=== PATIENT | female | born 1975 | race Caucasian/White ===

== ENCOUNTER → 2020-09-10 14:31 | Outpatient (BNVA) | payer OTHER, SELFPAY | PROVIDERS: PCP Internal Medicine; Referring Provider Internal Medicine; Visit Provider Advanced Practice Midwife | DX: Z76.89 Persons encountering health services in other specified circumstances (principal) ==

== ENCOUNTER 2020-12-05 14:15 | Outpatient (REF) | payer OTHER, SELFPAY | END 2020-12-05 14:16 | disposition home or self-care (01) | LOC: HO.LAB 14:15 | PROVIDERS: PCP Internal Medicine; Visit Provider Internal Medicine | DX: Z20.822 Contact with and (suspected) exposure to COVID-19 (principal) | CPT/HCPCS: 36415; C9803; U0003 ==

== ENCOUNTER → 2021-01-01 14:45 | Outpatient (BNVA) | payer OTHER, SELFPAY | PROVIDERS: PCP Internal Medicine; Visit Provider Advanced Practice Midwife | DX: Z30.42 Encounter for surveillance of injectable contraceptive (principal) | CPT/HCPCS: 81025; 96372; 99212 ==

== ENCOUNTER → 2021-03-27 14:47 | Outpatient (BNVA) | payer OTHER, SELFPAY | PROVIDERS: PCP Internal Medicine; Visit Provider Advanced Practice Midwife | DX: Z30.42 Encounter for surveillance of injectable contraceptive (principal) | CPT/HCPCS: 96372; 99211; J1050 ==

== ENCOUNTER → 2021-06-19 14:52 | Outpatient (BNVA) | payer OTHER, SELFPAY | PROVIDERS: PCP Internal Medicine; Visit Provider Advanced Practice Midwife | DX: Z30.42 Encounter for surveillance of injectable contraceptive (principal) | CPT/HCPCS: 96372; 99211 ==

== ENCOUNTER 2021-09-14 14:27 | Outpatient (REF) | payer OTHER, SELFPAY ==
[2021-09-17 02:32] LABS: HPV mRNA E6/E7 rflx Not Detected (Not Detected)
== END 2021-09-14 14:28 | disposition home or self-care (01) ==
LOC: HO.LAB 14:27
PROVIDERS: PCP Internal Medicine; Visit Provider Advanced Practice Midwife
DX: Z30.42 Encounter for surveillance of injectable contraceptive (principal); Z72.0 Tobacco use
CPT/HCPCS: 87624; 88142; 96372

== ENCOUNTER 2021-10-26 08:04 | Outpatient (REF) | payer OTHER, SELFPAY ==
--- NOTE | ~2021-10-26 | MM_ITS ---
EXAMINATION: MM SCREENING DIGITAL BREAST TOMOSYNTHESIS, BILATERAL CLINICAL INFORMATION: Screening. Asymptomatic. The lifetime risk of breast cancer based on the Tyrer-Cuzick Model is 13%. COMPARISON: Mammography: 09/15/2019, 06/16/2017, 03/16/2014 TECHNIQUE: Digital breast tomosynthesis is performed in both the craniocaudal and mediolateral oblique views along with computer-aided detection (CAD). Synthesized 2D images are generated from the tomosynthesis. FINDINGS: The breasts are heterogeneously dense, which may obscure small masses (ACR BI-RADS breast composition Category c). There is no developing density or architectural abnormality or significant mass. The axilla and skin contours are unremarkable. No abnormal calcifications on the right. The left MLO view has some fine punctate round calcifications posterior upper breast 9 cm from nipple. No grouped calcifications appreciated on CC view. These may be summated on the MLO projection. Patient will be recalled for additional imaging. MM/MM tomosynthesis screening BI IMPRESSION: 1. Left: Calcifications posterior upper breast on MLO view, possibly dispersed on CC projection. 2. Right: No mammographic evidence of malignancy. ASSESSMENT: BI-RADS 0: Incomplete - Need Additional Imaging Evaluation RECOMMENDATION: 1. Additional views of the left breast (magnification ML, magnification CC inner and outer). 2. Radiology department staff will contact the patient for additional imaging. This patient's information was entered into a reminder system with a target due date for their next mammogram.
== END 2021-10-26 08:05 | disposition home or self-care (01) ==
LOC: HO.MAMMO 08:04
PROVIDERS: PCP Internal Medicine; Visit Provider Advanced Practice Midwife
DX: Z12.31 Encounter for screening mammogram for malignant neoplasm of breast (principal)
CPT/HCPCS: 77063; 77067

== ENCOUNTER 2021-10-29 14:25 | Outpatient (REF) | payer OTHER, SELFPAY ==
--- NOTE | ~2021-10-29 | MM_ITS ---
EXAMINATION: MM DIAGNOSTIC DIGITAL MAMMOGRAPHY, LEFT CLINICAL INFORMATION: Recall from screening for fine punctate round calcifications upper left breast on MLO view. TC score 13%. COMPARISON: Mammography: 10/26/2021, 09/15/2019 TECHNIQUE: Digital mammography is performed in the following views: Magnification ML, magnification CC x3 (outer, central, inner). FINDINGS: The breasts are heterogeneously dense, which may obscure small masses (ACR BI-RADS breast composition Category c). The additional magnification views demonstrate punctate uniform round calcifications regionally distributed in the upper inner quadrant over an area of approximately 4 cm. There are no pleomorphic calcifications or ductal distribution. 2 calcifications show layering on the ML view. Results are discussed with the patient at time of visit. Calcifications have probable benign appearance and will be reassessed again in 6 months. MM/MM added views LT IMPRESSION: Punctate round calcifications upper inner quadrant. No pleomorphic types or ductal distribution. ASSESSMENT: BI-RADS 3: Probably Benign RECOMMENDATION: Diagnostic left mammography in 6 months. This patient's information was entered into a reminder system with a target due date for their next mammogram.
== END 2021-10-29 14:26 | disposition home or self-care (01) ==
LOC: HO.MAMMO 14:25
PROVIDERS: Visit Provider Advanced Practice Midwife
DX: R92.1 Mammographic calcification found on diagnostic imaging of breast (principal)
CPT/HCPCS: 77065

== ENCOUNTER → 2021-12-07 09:52 | Outpatient (BNVA) | payer OTHER, SELFPAY | PROVIDERS: PCP Internal Medicine; Visit Provider Advanced Practice Midwife | DX: Z30.42 Encounter for surveillance of injectable contraceptive (principal) | CPT/HCPCS: 96372; 99211 ==

== ENCOUNTER → 2022-03-29 09:00 | Outpatient (BNVA) | payer OTHER, SELFPAY | PROVIDERS: PCP Internal Medicine; Visit Provider Advanced Practice Midwife | DX: Z30.42 Encounter for surveillance of injectable contraceptive (principal) | CPT/HCPCS: 96372; 99211 ==

== ENCOUNTER 2022-05-03 09:54 | Outpatient (REF) | payer OTHER, SELFPAY ==
--- NOTE | ~2022-05-03 | MM_ITS ---
EXAMINATION: MM DIAGNOSTIC DIGITAL BREAST TOMOSYNTHESIS, LEFT CLINICAL INFORMATION: Short interval six-month follow-up probable benign calcifications upper inner quadrant. The lifetime risk of breast cancer based on the Tyrer-Cuzick Model is 13%. COMPARISON: Mammography: 10/29/2021, 10/26/2021 (BI-RADS 0), 09/15/2019, 06/16/2017 TECHNIQUE: Digital breast tomosynthesis is performed in both the craniocaudal and mediolateral oblique views along with computer-aided detection (CAD). Synthesized 2D images are generated from the tomosynthesis. Additional magnification CC and magnification ML views are provided. FINDINGS: The breasts are heterogeneously dense, which may obscure small masses (ACR BI-RADS breast composition Category c). Parenchymal pattern is similar to prior studies. No developing density or interval mass or architectural abnormality. The axilla and skin contours are unremarkable. Left breast calcifications for follow-up appear similar to prior diagnostic exam. There is no increasing calcifications or interval pleomorphic types or ductal distribution. Calcifications will be reassessed again at time of annual bilateral mammography, due in 6 months. MM/MM tomosynthesis diagnostic LT IMPRESSION: -Left breast calcifications for follow-up are stable from prior diagnostic exam. ASSESSMENT: BI-RADS 3: Probably Benign RECOMMENDATION: Diagnostic mammography at time of annual bilateral exam, due in 6 months. This patient's information was entered into a reminder system with a target due date for their next mammogram.
== END 2022-05-03 09:55 | disposition home or self-care (01) ==
LOC: HO.MAMMO 09:54
PROVIDERS: Visit Provider Advanced Practice Midwife
DX: R92.1 Mammographic calcification found on diagnostic imaging of breast (principal)
CPT/HCPCS: 77061; 77065

== ENCOUNTER → 2022-06-25 15:09 | Outpatient (BNVA) | payer OTHER, SELFPAY | PROVIDERS: PCP Internal Medicine; Visit Provider Advanced Practice Midwife | DX: Z30.42 Encounter for surveillance of injectable contraceptive (principal) | CPT/HCPCS: 96372; 99211 ==

== ENCOUNTER → 2022-09-20 14:40 | Outpatient (BNVA) | payer OTHER, SELFPAY | PROVIDERS: Visit Provider Advanced Practice Midwife | DX: Z01.419 Encounter for gynecological examination (general) (routine) without abnormal findings (principal); Z30.42 Encounter for surveillance of injectable contraceptive; Z72.0 Tobacco use | CPT/HCPCS: 96372 ==

== ENCOUNTER 2022-11-05 14:22 | Outpatient (REF) | payer OTHER, SELFPAY | END 2022-11-05 14:23 | disposition home or self-care (01) | LOC: HO.MAMMO 14:22 | PROVIDERS: Visit Provider Advanced Practice Midwife | DX: R92.1 Mammographic calcification found on diagnostic imaging of breast (principal) | CPT/HCPCS: 77062; 77066 ==

== ENCOUNTER → 2022-12-15 14:54 | Outpatient (BNVA) | payer OTHER, SELFPAY | PROVIDERS: Visit Provider Advanced Practice Midwife | DX: Z30.42 Encounter for surveillance of injectable contraceptive (principal) | CPT/HCPCS: 96372; 99211 ==

== ENCOUNTER → 2023-03-16 14:49 | Outpatient (BNVA) | payer OTHER, SELFPAY | PROVIDERS: Visit Provider Advanced Practice Midwife | DX: Z30.42 Encounter for surveillance of injectable contraceptive (principal) | CPT/HCPCS: 96372; 99211 ==

== ENCOUNTER 2023-05-02 14:29 | Outpatient (REF) | payer OTHER, SELFPAY ==
--- NOTE | ~2023-05-02 | MM_ITS ---
EXAMINATION: MM DIAGNOSTIC DIGITAL BREAST TOMOSYNTHESIS, RIGHT CLINICAL INFORMATION: Short interval six-month follow-up probable benign calcifications lower outer right breast similar to calcifications contralateral left breast also under surveillance. TC score 13%. COMPARISON: Mammography: 11/05/2022 (diagnostic, BI-RADS 3 for right); 05/03/2022, 10/29/2021, 10/26/2021 (BI-RADS 0 for left). TECHNIQUE: Digital breast tomosynthesis is performed in both the craniocaudal and mediolateral oblique views along with computer-aided detection (CAD). Synthesized 2D images are generated from the tomosynthesis. Additional magnification right CC and magnification right ML views are obtained. FINDINGS: The breasts are heterogeneously dense, which may obscure small masses (ACR BI-RADS breast composition Category c). Parenchymal pattern is similar to prior studies and there is no developing density or interval mass or architectural abnormality. Right breast calcifications for follow-up central 8:00 position are similar to prior diagnostic exam. The calcifications will be reassessed at time of bilateral annual diagnostic mammography, due in 6 months. Results are provided to the patient at time of visit by the technologist. MM/MM tomosynthesis diagnostic RT IMPRESSION: -No significant change in right breast calcifications from prior diagnostic exam. ASSESSMENT: BI-RADS 3: Probably Benign RECOMMENDATION: Diagnostic mammography with bilateral magnification views at time of annual exam, due in 6 months. This patient's information was entered into a reminder system with a target due date for their next mammogram.
== END 2023-05-02 14:30 | disposition home or self-care (01) ==
LOC: HO.MAMMO 14:29
PROVIDERS: Visit Provider Advanced Practice Midwife
DX: R92.1 Mammographic calcification found on diagnostic imaging of breast (principal)
CPT/HCPCS: 77061; 77065

== ENCOUNTER 2023-06-03 14:58 | Outpatient (AMB) | payer OTHER, SELFPAY ==
[2023-06-03 15:15] VITALS: BMI 30.5
--- NOTE | 2023-06-03 15:15 | AM.OFFVISNUR ---
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 No c/o. Pt tolerated injection well. She will return in 12 weeks for her next injection. Pt verbalizes understanding and agrees with plan. No further questions. Office Procedures Depo Questionnaire If YES to any of the following questions, please consult a provider. Date of last injection: 03/16/23 Date of last gynecology exam: 09/20/22 Menstrual pattern since last injection has been: Not Applicable Irregular bleeding?: No Breast lumps or other breast changes?: No Changes in weight or appetite?: No Depression or changes in mood?: No Abnormal hair growth or loss?: No Skin problems (rash, acne, discoloration)?: No Pain at the injection site?: No Headaches?: No Nervousness?: No Abdominal pain or cramping?: No Dizziness or nausea?: No Fatigue or weakness?: No Decrease in sexual drive?: No Chest pain or shortness of breath?: No Swelling in arms or legs?: No Form completed by?: Doris Davis RN Office Meds Depo-Provera Performing Provider: Ivon Benedict CNM Administered by: Doris Davis on 06/03/23 15:17 Dose Route Admin Location Lot Number Expiration Date [facility] Coordinator 150 mg IM LGM [id number] 11/13/24 66127-807-35 LAN Coding Level of Care Code Established Pt Est Pt Level 1 (09351) Patient Type Established History Problem Focused Medical Decision Making Straight Forward Diagnoses Time Spent (min) 10 Assessment & Plan Assessment & Plan Orders: Orders AMB Medroxyprogesterone Injection Patient Supplied Today Z30.42 - Encounter for surveillance of injectable contraceptive
== END 2023-06-03 15:11 | disposition home or self-care (01) ==
LOC: HO.HWS 14:58
PROVIDERS: Visit Provider Advanced Practice Midwife
DX: Z30.42 Encounter for surveillance of injectable contraceptive (principal)

== ENCOUNTER → 2023-06-03 14:58 | Outpatient (BNVA) | payer OTHER, SELFPAY | PROVIDERS: Visit Provider Advanced Practice Midwife | DX: Z30.42 Encounter for surveillance of injectable contraceptive (principal) | CPT/HCPCS: 96372; 99211; J1050 ==

== ENCOUNTER 2023-08-29 14:55 | Outpatient (AMB) | payer OTHER, SELFPAY ==
[2023-08-29 15:20] VITALS: BMI 30.7
--- NOTE | 2023-08-29 15:20 | AM.OFFVISNUR ---
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 No c/o. Pt tolerated injection well. She will schedule her next injection in 12 weeks. Pt verbalizes understanding and agrees with plan. No further questions. Office Procedures Depo Questionnaire If YES to any of the following questions, please consult a provider. Date of last injection: 06/03/23 Date of last gynecology exam: 09/20/22 Menstrual pattern since last injection has been: Not Applicable Irregular bleeding?: No Breast lumps or other breast changes?: No Changes in weight or appetite?: No Depression or changes in mood?: No Abnormal hair growth or loss?: No Skin problems (rash, acne, discoloration)?: No Pain at the injection site?: No Headaches?: No Nervousness?: No Abdominal pain or cramping?: No Dizziness or nausea?: No Fatigue or weakness?: No Decrease in sexual drive?: No Chest pain or shortness of breath?: No Swelling in arms or legs?: No Form completed by?: Doris Davis cleaning and maintenance worker Meds Depo-Provera 150 mg/mL intramuscular syringe Performing Provider: Ivon Benedict CNM Performing Location: [facility] [place] [facility] Administered by: Doris Davis on 08/29/23 15:24 Dose Route Admin Location Dispensed Lot Number Expiration Date [facility] Instructional Services Specialist 150 mg IM LGM 1 mL [id number] 03/13/25 14244-972-90 MYLAN Coding Level of Care Code Established Pt Est Pt Level 1 (28897) Patient Type Established History Problem Focused Medical Decision Making Straight Forward Time Spent (min) 12 Assessment & Plan Assessment & Plan Orders: Orders AMB Medroxyprogesterone Injection Patient Supplied Today Z30.42 - Encounter for surveillance of injectable contraceptive
== END 2023-08-29 15:18 | disposition home or self-care (01) ==
PROVIDERS: Visit Provider Advanced Practice Midwife
DX: Z30.42 Encounter for surveillance of injectable contraceptive (principal)

== ENCOUNTER → 2023-08-29 14:55 | Outpatient (BNVA) | payer OTHER, SELFPAY | PROVIDERS: Visit Provider Advanced Practice Midwife | DX: Z30.42 Encounter for surveillance of injectable contraceptive (principal) | CPT/HCPCS: 96372; 99211; J1050 ==

== ENCOUNTER 2023-09-29 09:01 | Outpatient (AMB) | payer OTHER, SELFPAY ==
--- NOTE | 2023-09-29 09:05 | MHC.OFFVIS ---
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 Manager Utilities: Manager Utilities Present (Betty) Allergies No Known Allergies Allergy (Verified 09/29/23 09:06) HPI HPI Comments History of Present Illness Details She is a premenopausal woman presenting for annual examination. Doing well with sports administrator concerns of white bumps located on her labial. Denies pain. Associated with itching. She thinks the itching is because she shaved . She tries to eat healthy and stays active with exercise. Not sexually active. Uses Depo for cycle control. She denies vaginal itching and irritation. Denies family history of breast, ovarian or colon cancer. Last pap smear 09/14/2021, was negative. Last mammogram 05/02/2023, 3.6M Probably Benign Finding - Short 6 M F/U Suggested. She denies any contraindications to control such as: migraines with aura, history of DVT or pulmonary emboli, high blood pressure, liver disease, thrombolic disorders, Lupus, +PEDRO LUIS. Smoker ~1pack every three days, not ready to quit. 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 [employer] Sexual orientation: Straight/Heterosexual Gender identity: Female Female Reproductive History Menstrual Age of Menarche: 12 control method: progesterone injection (Last depo 08/29/23) Total pregnancies: 4 Full term: 1 Number of Living Children: 1 Ab induced: 3 Date of last pap smear: 09/14/21 (neg pap and hpv) History of abnormal pap smear: Yes (5/15 +HPV, 6/16 DELFINA 2 +hpv 8/16 colpo DELFINA 2-3 07/30 Leep DELFINA 3 05/30 neg ) Date of Mammogram: 05/02/23 (Birad 3) Review of Systems Const All systems reviewed & are unremarkable except as noted in HPI and below Reports as per HPI Eyes Reports no additional complaints ENT Reports no additional complaints Card Reports no additional complaints Resp Reports no additional complaints GI Reports as per HPI and Reports no additional complaints Reports as per HPI Musc Reports no additional complaints Skin/Breast Reports as per HPI Neuro Reports no additional complaints Psych Reports no additional complaints Endo Reports no additional complaints Chuck/Lymph Reports no additional complaints Aller/Immun Reports no additional complaints Physical Exam Vital Signs: Last Vital Signs BP 126/84 09/29/23 09:06 BMI result Body Mass Index 31.5 Const General: cooperative, healthy appearing, no acute distress, well developed and alert Orientation/consciousness: patient oriented x3 HEENT Head: Yes normal to inspection Eyes General: appearance normal, both eyes and all related structures Neck Neck: Yes normal visual inspection Thyroid: Thyroid normal Chest Chest palpation & inspection: normal inspection of the chest and other (no puckering, dimpling, peau de orange, retraction, discharge, masses) Breast/axilla inspection: normal inspection of the breasts Breast/axilla palpation: normal palpation of the breasts Resp Effort & Inspection: normal respiratory effort GI Inspection: Yes normal to inspection Palpation (GI): Soft to palpation Rectal Exam - Female: deferred General: Yes bladder normal to palpation External Female Exam: normal appearance of the urethra and other (Scattered sebaceous gland cyst on bilateral labia ) Speculum Exam - Vagina: normal appearance of the vagina, normal palpation and normal vaginal discharge Speculum Exam - Cervix: normal appearance of the cervix and normal palpation Bimanual exam- vagina & uterus: normal bimanual exam, normal palpation, uterine size normal, bladder normal to palpation, normal palpation and non-tender Bimanual Exam- Adnexa, other: no masses Skin General skin exam: no rashes or lesions noted Rashes: no rashes Neuro General: patient oriented x3 Cognition (Neuro): normal cognition Extrem General: Yes normal to inspection Psych Attitude: cooperative Thought process: Normal thought process present Assessment & Plan Assessment & Plan (1) Encounter for gynecological examination: Code(s): Z01.419 - Encounter for gynecological examination (general) (routine) without abnormal findings Plan: Discussed: Current recommendations for pap smears per ASCCP guidelines. Breast awareness and periodic self breast exams. Maintaining a healthy lifestyle including a well balanced diet and routine exercise. Encouraged condom use for STD and prevention. Encouraged patient to sign up for patient portal. All of her questions and concerns were addressed to the best of my ability She will return in one year for AG. (2) Sebaceous cyst of labia: Code(s): N90.7 - Vulvar cyst Plan: Reassured pt. the sebaceous glands are normal findings. She use a warm compress if they become inflamed. If they become infected or painful contact the office for further eval. 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 Consider other options, including non hormonal. Checking FSH once off for a trial, await menses, monitor for hot flashes to ascertin whether the Depo is needed at this age. Encouraged maintaining a healthy diet with Calcium and Vitamin D and routine weight bearing exercises. Pt. does not want a cycle, she prefers to wait another year before considering any changes. She was instructed to go to ER if she develops loss of vision, severe headache that does not resolve, chest pain, difficulty breathing, abdominal pain, or severe pain or tenderness in extremity or new breast lumps. She will call the office with any concerns. (4) Encounter for tobacco use cessation counseling: Code(s): Z71.6 - Tobacco abuse counseling Plan: Encouraged reduction of smoking tips, and to quit. Medications: Refilled medroxyprogesterone (Depo-Provera) 150 mg IM Q12W 1 mL 4RF Coding Level of Care Code Est Pt Prev Care 40-64y(52586) Diagnoses Encounter for gynecological examination Z01. Sebaceous cyst of labia N90.7 Encounter for management and injection of depo-Provera Z30.42 Encounter for tobacco use cessation counseling Z71.6
[2023-09-29 09:06] VITALS: BP 126/84; BMI 31.5
== END 2023-09-29 09:53 | disposition home or self-care (01) ==
LOC: HO.HWS 09:01
PROVIDERS: Visit Provider Advanced Practice Midwife
DX: Z01.419 Encounter for gynecological examination (general) (routine) without abnormal findings (principal); N90.7 Vulvar cyst; Z30.42 Encounter for surveillance of injectable contraceptive; Z71.6 Tobacco abuse counseling
CPT/HCPCS: 99396

== ENCOUNTER → 2023-09-29 09:01 | Outpatient (BNVA) | payer OTHER, SELFPAY | PROVIDERS: Visit Provider Advanced Practice Midwife ==

== ENCOUNTER 2023-10-31 14:15 | Outpatient (REF) | payer OTHER, SELFPAY ==
--- NOTE | ~2023-10-31 | MM_ITS ---
EXAMINATION: MM DIAGNOSTIC DIGITAL BREAST TOMOSYNTHESIS, BILATERAL CLINICAL INFORMATION: follow-up of bilateral breast calcifications. COMPARISON: Mammography: This study is compared with prior mammograms dating back to 2019. TECHNIQUE: Digital breast tomosynthesis is performed in both the craniocaudal and mediolateral oblique views along with computer-aided detection (CAD). Synthesized 2D images are generated from the tomosynthesis. Bilateral magnification imaging was performed. FINDINGS: The breasts are heterogeneously dense, which may obscure small masses (ACR BI-RADS breast composition Category c). There are no significant masses, abnormal calcifications, or other abnormalities. There is no significant interval change the appearance of calcifications in either breast. These are benign. MM/MM tomosynthesis diagnostic BI IMPRESSION: There are no significant changes from prior study. ASSESSMENT: BI-RADS BI-RADS 2 - Benign Findings RECOMMENDATION: 1 year F/U Results were provided to the patient at time of visit by the technologist. This patient's information was entered into a reminder system with a target due date for their next mammogram.
== END 2023-10-31 14:16 | disposition home or self-care (01) ==
LOC: HO.MAMMO 14:15
PROVIDERS: Visit Provider Advanced Practice Midwife
DX: R92.1 Mammographic calcification found on diagnostic imaging of breast (principal)
CPT/HCPCS: 77062; 77066

== ENCOUNTER → 2023-10-31 14:30 | Outpatient (BNV) | payer OTHER, SELFPAY | PROVIDERS: Visit Provider Radiology Diagnostic Radiology | DX: Z12.31 Encounter for screening mammogram for malignant neoplasm of breast (principal) | CPT/HCPCS: 77062; 77066 ==

== ENCOUNTER 2023-11-21 11:10 | Outpatient (AMB) | payer OTHER, SELFPAY ==
[2023-11-21 11:28] VITALS: BMI 31.5
--- NOTE | 2023-11-21 11:28 | AM.OFFVISNUR ---
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 No c/o, no new diagnoses. Pt tolerated injection well. Will schedule next injection in 12 weeks. Pt verbalizes understanding and agrees with plan. No further questions. Office Procedures Depo Questionnaire If YES to any of the following questions, please consult a provider. Date of last injection: 08/29/23 Date of last gynecology exam: 09/29/23 Menstrual pattern since last injection has been: Not Applicable Irregular bleeding?: No Breast lumps or other breast changes?: No Changes in weight or appetite?: No Depression or changes in mood?: No Abnormal hair growth or loss?: No Skin problems (rash, acne, discoloration)?: No Pain at the injection site?: No Headaches?: No Nervousness?: No Abdominal pain or cramping?: No Dizziness or nausea?: No Fatigue or weakness?: No Decrease in sexual drive?: No Chest pain or shortness of breath?: No Swelling in arms or legs?: No Form completed by?: Doris Davis RN Office Meds Depo-Provera 150 mg/mL intramuscular syringe Performing Provider: Ivon Benedict CNM Performing Location: [facility] [place] [facility] Administered by: Doris Davis on 11/21/23 11:30 Dose Route Admin Location Dispensed Lot Number Expiration Date [facility] Circulation Clerk 150 mg IM RGM 1 mL [id number] 03/13/25 90572-923-66 [facility] Coding Level of Care Code Established Pt Est Pt Level 1 (40947) Patient Type Established History Problem Focused Medical Decision Making Straight Forward Time Spent (min) 13 Assessment & Plan Assessment & Plan Plan Pt was advised to schedule next Depo injection in 12 weeks. Pt is requesting refill on prescription. She denies any new diagnosis or problems. She is a smoker. Will send message for refill to Ivon Orders: Orders AMB Medroxyprogesterone Injection Patient Supplied Today Z30.42 - Encounter for surveillance of injectable contraceptive
== END 2023-11-21 11:24 | disposition home or self-care (01) ==
LOC: HO.HWS 11:10
PROVIDERS: Visit Provider Advanced Practice Midwife
DX: Z30.42 Encounter for surveillance of injectable contraceptive (principal)

== ENCOUNTER → 2023-11-21 11:10 | Outpatient (BNVA) | payer OTHER, SELFPAY | PROVIDERS: Visit Provider Advanced Practice Midwife | DX: Z30.42 Encounter for surveillance of injectable contraceptive (principal) | CPT/HCPCS: 96372; 99211; J1050 ==

== ENCOUNTER 2024-02-13 10:55 | Outpatient (AMB) | payer OTHER, SELFPAY ==
[2024-02-13 11:25] VITALS: BMI 31.5
--- NOTE | 2024-02-13 11:25 | AM.OFFVISNUR ---
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 No c/o, does not have menses. Pt tolerated injection well. She will schedule her next injection in 12 weeks. Pt verbalizes understanding and agrees with plan. No further questions. Office Procedures Depo Questionnaire If YES to any of the following questions, please consult a provider. Date of last injection: 11/21/23 Date of last gynecology exam: 09/29/23 Menstrual pattern since last injection has been: Not Applicable Irregular bleeding?: No Breast lumps or other breast changes?: No Changes in weight or appetite?: No Depression or changes in mood?: No Abnormal hair growth or loss?: No Skin problems (rash, acne, discoloration)?: No Pain at the injection site?: No Headaches?: No Nervousness?: No Abdominal pain or cramping?: No Dizziness or nausea?: No Fatigue or weakness?: No Decrease in sexual drive?: No Chest pain or shortness of breath?: No Swelling in arms or legs?: No Form completed by?: Doris Davis outbound sales professional Meds Depo-Provera 150 mg/mL intramuscular syringe Performing Provider: Ivon Benedict CNM Performing Location: [facility] [place] [facility] Administered by: Doris Davis on 02/13/24 11:27 Dose Route Admin Location Dispensed Lot Number Expiration Date [facility] Quill Picking Machine Operator 150 mg IM RGM 1 mL [id number] 08/13/25 74280-515-13 MYLAN Coding Level of Care Code Established Pt Est Pt Level 1 (20904) Patient Type Established History Problem Focused Medical Decision Making Straight Forward Time Spent (min) 12 Assessment & Plan Assessment & Plan Orders: Orders AMB Medroxyprogesterone Injection Patient Supplied Today Z30.42 - Encounter for surveillance of injectable contraceptive
== END 2024-02-13 11:31 | disposition home or self-care (01) ==
PROVIDERS: Visit Provider Advanced Practice Midwife
DX: Z30.42 Encounter for surveillance of injectable contraceptive (principal)

== ENCOUNTER → 2024-02-13 10:55 | Outpatient (BNVA) | payer OTHER, SELFPAY | PROVIDERS: Visit Provider Advanced Practice Midwife | DX: Z30.42 Encounter for surveillance of injectable contraceptive (principal) | CPT/HCPCS: 96372; 99211; J1050 ==

== ENCOUNTER 2024-05-07 10:57 | Outpatient (AMB) | payer OTHER, SELFPAY ==
[2024-05-07 11:36] VITALS: BMI 32.6
--- NOTE | 2024-05-07 11:36 | AM.OFFVISNUR ---
Intake Vital Signs 05/07/24 11:36 Height 5 ft 3 in Weight 83.461 kg BMI 32.6 Intake Visit Reasons: DEPO Allergies No Known Allergies Allergy (Verified 09/29/23 09:06) Nursing Note Gabi is here today for her scheduled Depo-provera inj. Pt denies any problems or concerns. Follow up in 12 weeks for next inj. Pt is scheduled for her AG in Sep 2024. Office Procedures Depo Questionnaire If YES to any of the following questions, please consult a provider. Date of last injection: 02/13/24 Date of last gynecology exam: 09/29/23 Menstrual pattern since last injection has been: Not Applicable Irregular bleeding?: No Breast lumps or other breast changes?: No Changes in weight or appetite?: No Depression or changes in mood?: No Abnormal hair growth or loss?: No Skin problems (rash, acne, discoloration)?: No Pain at the injection site?: No Headaches?: No Nervousness?: No Abdominal pain or cramping?: No Dizziness or nausea?: No Fatigue or weakness?: No Decrease in sexual drive?: No Chest pain or shortness of breath?: No Swelling in arms or legs?: No Form completed by?: Muna Amin LPN Office Meds Depo-Provera 150 mg/mL intramuscular syringe Performing Provider: Ivon Benedict CNM Performing Location: [facility] Administered by: Shannan Amin LPN on 05/07/24 11:38 Dose Route Admin Location Dispensed Lot Number Expiration Date [facility] Construction Teacher 150 mg IM left gluteus 1 mL [id number] 11/13/25 09533-220-37 LAN Coding Level of Care Code Established Pt Est Pt Level 1 (19441) Patient Type Established History Problem Focused Exam Problem Focused Medical Decision Making Straight Forward Time Spent (min) 20 Assessment & Plan Assessment & Plan Orders: Orders AMB Medroxyprogesterone Injection Patient Supplied Today Z30.42 - Encounter for surveillance of injectable contraceptive Medications: New Depo-Provera (medroxyprogesterone) 150 mg IM ONCE 1 mL 0RF NS Z30.42 - Encounter for surveillance of injectable contraceptive
== END 2024-05-07 11:37 | disposition home or self-care (01) ==
PROVIDERS: Visit Provider Advanced Practice Midwife
DX: Z30.42 Encounter for surveillance of injectable contraceptive (principal)

== ENCOUNTER → 2024-05-07 10:57 | Outpatient (BNVA) | payer OTHER, SELFPAY | PROVIDERS: Visit Provider Advanced Practice Midwife | DX: Z30.42 Encounter for surveillance of injectable contraceptive (principal) | CPT/HCPCS: 96372; 99211; J1050 ==

== ENCOUNTER 2024-07-23 12:51 | Outpatient (AMB) | payer OTHER, SELFPAY ==
[2024-07-23 13:03] VITALS: BMI 31.5
--- NOTE | 2024-07-23 13:03 | AM.OFFVISNUR ---
Vital Signs 07/23/24 13:03 Height 5 ft 3 in Weight 178 lb BMI 31.5 Intake Visit Reasons: Depo Hourly Sales Staff Required: No Allergies No Known Allergies Allergy (Verified 09/29/23 09:06) Is last menstrual period known: No Post menopausal: No Patient : No Nursing Note Gabi is here for scheduled Depo provera injection. She is down 6 lbs from her last injection in April and very proud of her accomplishment. No c/o, no new medical problems and no new meds. Pt tolerated injection well and she will schedule her next injection in 12 weeks. Pt verbalizes understanding and agrees with plan. No further questions. Office Procedures Depo Questionnaire If YES to any of the following questions, please consult a provider. Date of last injection: 05/07/24 Date of last gynecology exam: 09/29/23 Menstrual pattern since last injection has been: Not Applicable Irregular bleeding?: No Breast lumps or other breast changes?: No Changes in weight or appetite?: Yes Depression or changes in mood?: No Abnormal hair growth or loss?: No Skin problems (rash, acne, discoloration)?: No Pain at the injection site?: No Headaches?: No Nervousness?: No Abdominal pain or cramping?: No Dizziness or nausea?: No Fatigue or weakness?: No Decrease in sexual drive?: No Chest pain or shortness of breath?: No Swelling in arms or legs?: No Any other problems or concerns?: Lost 6 lbs since April by increasing her activity. Form completed by?: Doris Davis RN Office Meds Depo-Provera 150 mg/mL intramuscular syringe Performing Provider: Ivon Benedict CNM Performing Location: [facility] Administered by: Doris Davis on 07/23/24 13:19 Dose Route Admin Location Dispensed Lot Number Expiration Date [facility] Furniture Removalist'S Assistant 150 mg IM RGM 1 mL [id number] 08/13/25 61491-405-96 MYLAN Assessment & Plan Assessment & Plan (1) Encounter for management and injection of depo-Provera: Code(s): Z30.42 - Encounter for surveillance of injectable contraceptive Category: Medical Plan Pt will schedule next injection in 12 weeks Orders: Orders AMB Medroxyprogesterone Injection Patient Supplied Today Z30.42 - Encounter for surveillance of injectable contraceptive Medications: New Depo-Provera (medroxyprogesterone) 150 mg IM ONCE 1 mL 0[facility] Z30.42 - Encounter for surveillance of injectable contraceptive
== END 2024-07-23 13:14 | disposition home or self-care (01) ==
LOC: HO.HWS 12:51
PROVIDERS: Visit Provider Advanced Practice Midwife
DX: Z30.42 Encounter for surveillance of injectable contraceptive (principal)

== ENCOUNTER → 2024-07-23 12:51 | Outpatient (BNVA) | payer OTHER, SELFPAY | PROVIDERS: Visit Provider Advanced Practice Midwife | DX: Z30.42 Encounter for surveillance of injectable contraceptive (principal) | CPT/HCPCS: 96372; 99211; J1050 ==

== ENCOUNTER 2024-10-17 09:53 | Outpatient (REF) | payer OTHER, SELFPAY ==
[2024-10-18 09:49] LABS: HPV 16,18/45 See PAP report
== END 2024-10-17 09:54 | disposition home or self-care (01) ==
LOC: HO.LNP 09:53
PROVIDERS: Visit Provider Advanced Practice Midwife
DX: Z01.419 Encounter for gynecological examination (general) (routine) without abnormal findings (principal)
CPT/HCPCS: 87624; 88175; 99396

== ENCOUNTER 2024-10-17 09:57 | Outpatient (AMB) | payer OTHER, SELFPAY ==
[2024-10-17 09:59] VITALS: BP 114/70; BMI 31.2
--- NOTE | 2024-10-17 09:59 | A.OFFVIS_ITS ---
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 Doing well with 2022 concerns. Requests refill on her Depo-Provera, has been on it for at least 15 years and prefers not to have her cycle. Currently is not sexually active. She denies vaginal itching and irritation. STI screening offered; she declined. She tries to eat healthy and stays active with exercise. Denies family history of breast, ovarian or colon cancer. Last pap smear 2020, negative. Mammogram: 2022. Current everyday smoker. 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 [employer] Sexual orientation: Straight/Heterosexual Gender identity: Female Female Reproductive History Menstrual Age of Menarche: 12 control method: progesterone injection Total pregnancies: 4 Full term: 1 Number of Living Children: 1 Ab induced: 3 Date of last pap smear: 09/14/21 (neg pap and hpv) History of abnormal pap smear: Yes (5/15 +hpv 6/16 rayna 2 +hpv 8/16 colpo rayna 2-3 9/16 leep rayna 3 05/30 neg) Date of Mammogram: 10/31/23 (Birad 2) Review of Systems Const All systems reviewed & are unremarkable except as noted in HPI and below Reports as per HPI Eyes Reports no additional complaints ENT Reports no additional complaints Card Reports no additional complaints Resp Reports no additional complaints GI Reports as per HPI and Reports no additional complaints Reports as per HPI Musc Reports no additional complaints Skin/Breast Reports as per HPI Neuro Reports no additional complaints Psych Reports no additional complaints Endo Reports no additional complaints Chuck/Lymph Reports no additional complaints Aller/Immun Reports no additional complaints Physical Exam Vital Signs: Last Vital Signs BP 114/70 10/17/24 09:59 BMI result Body Mass Index 31.2 Const General: cooperative, healthy appearing, no acute distress, well developed and alert Orientation/consciousness: patient oriented x3 HEENT Head: Yes normal to inspection Eyes General: appearance normal, both eyes and all related structures Neck Neck: Yes normal visual inspection Thyroid: Thyroid normal Chest Chest palpation & inspection: normal inspection of the chest and other (no puckering, dimpling, peau de orange, retraction, discharge, masses) Breast/axilla inspection: normal inspection of the breasts Breast/axilla palpation: normal palpation of the breasts Resp Effort & Inspection: normal respiratory effort GI Inspection: Yes normal to inspection Palpation (GI): Soft to palpation Rectal Exam - Female: deferred General: Yes bladder normal to palpation External Female Exam: normal external appearance and normal appearance of the urethra Speculum Exam - Vagina: normal appearance of the vagina, normal palpation and normal vaginal discharge Speculum Exam - Cervix: normal appearance of the cervix, normal palpation and Other cervical findings present (post LEEP appearance) Bimanual exam- vagina & uterus: normal bimanual exam, normal palpation, uterine size normal, bladder normal to palpation, normal palpation and non-tender Bimanual Exam- Adnexa, other: no masses Skin General skin exam: no rashes or lesions noted Rashes: no rashes Neuro General: patient oriented x3 Cognition (Neuro): normal cognition Extrem General: Yes normal to inspection Psych Attitude: cooperative Thought process: Normal thought process present Assessment & Plan Assessment & Plan (1) Well woman exam with routine gynecological exam: Code(s): Z01.419 - Encounter for gynecological examination (general) (routine) without abnormal findings Category: Medical Plan Discussed: Current recommendations for pap smears per ASCCP guidelines. Pap smear obtained. Breast awareness and periodic breast exams. Mammogram yearly. Maintain a healthy lifestyle including a well balanced diet and routine exercise. Use condoms for STI and prevention. Colonoscopy >45, or at risk sooner-discuss with primary care. Counseled regarding long-term Depo-Provera use in bone density loss concerns for approaching age of menopause. Currently not intimate does not require contraception-plan FSH check labs in 3 to 4 weeks, follow up pending results. Discuss alternatives to estrogen based contraception and progesterone only use. Observe for cycles for now. Menopause verses perimenopause. Menopause is definitive of 1 year of no menses or 12 months in succession. Report any abnormal uterine bleeding in example prolonged episodes, or short intervals less than 24 days. Patient verbalizes understanding and agrees to the plan of care. She was given opportunity to ask questions and all questions were answered to the best of my ability. RTO in one year for annual public health inspector examination. This note is constructed using voice recognition software. While every effort has been made to ensure accuracy, manager environmental affairs errors may have been included. Orders: Orders MM tomosynthesis screening BI Today Z12.31 - Encounter for screening mammogram for malignant neoplasm of breast Follicle Stimulating Hormone Today N91.2 - Amenorrhea, unspecified HPV High risk Today Z01.419 - Encounter for gynecological examination (general) (routine) without abnormal findings Pap Smear Today Z01.419 - Encounter for gynecological examination (general) (routine) without abnormal findings Medications: Discontinued medroxyprogesterone (Depo-Provera) Discontinued Reason: No Longer Medically Relevant 150 mg IM Q12W 1 mL 4RF Coding Level of Care Code Est Pt Prev Care 40-64y(75254) Diagnoses Well woman exam with routine gynecological exam Z01.419
== END 2024-10-17 10:54 | disposition home or self-care (01) ==
PROVIDERS: Visit Provider Advanced Practice Midwife
DX: Z01.419 Encounter for gynecological examination (general) (routine) without abnormal findings (principal)
CPT/HCPCS: 99396

== ENCOUNTER 2024-11-12 15:50 | Outpatient (REF) | payer OTHER, SELFPAY | END 2024-11-12 15:51 | disposition home or self-care (01) | LOC: HO.MAMMO 15:50 | PROVIDERS: Visit Provider Advanced Practice Midwife | DX: Z12.31 Encounter for screening mammogram for malignant neoplasm of breast (principal) | CPT/HCPCS: 77063; 77067 ==

== ENCOUNTER → 2024-11-12 16:00 | Outpatient (BNV) | payer OTHER, SELFPAY | PROVIDERS: Visit Provider Internal Medicine | DX: Z12.31 Encounter for screening mammogram for malignant neoplasm of breast (principal) | CPT/HCPCS: 77063; 77067 ==

== ENCOUNTER 2025-01-01 09:03 | Outpatient (REF) | payer OTHER, SELFPAY ==
--- NOTE | ~2025-01-01 | US_ITS ---
EXAMINATION: MM DIAGNOSTIC DIGITAL BREAST TOMOSYNTHESIS, RIGHT Limited right breast ultrasound. CLINICAL INFORMATION: Call back from screening for asymmetry in the right breast. COMPARISON: Mammography: Available prior imaging. TECHNIQUE: Digital breast tomosynthesis is performed in both the craniocaudal and mediolateral oblique views along with computer-aided detection (CAD). Synthesized 2D images are generated from the tomosynthesis. Limited right breast ultrasound. FINDINGS: The breasts are heterogeneously dense, which may obscure small masses (ACR BI-RADS breast composition Category c). Previously seen asymmetries in the superior breast and retroareolar region of the right breast do not persist on additional imaging projections and likely represented overlapping breast tissue. There are no significant masses, abnormal calcifications, or other abnormalities. Targeted color Doppler ultrasound scanning from 9 2 2:00 demonstrates an incidental hypoechoic oval circumstance solid mass versus complicated cyst at 12:00 6 cm from the nipple measuring 4 x 2 x 4 mm. No other sonographic abnormality is seen otherwise there is normal fibronodular breast tissue. US/US breast RT limited mamm only IMPRESSION: Incidental solid mass versus complicated cyst at 12:00 6 cm from nipple. Recommend 6 month follow-up ultrasound for further evaluation of stability. ASSESSMENT: BI-RADS BI-RADS 3 - Probably benign finding(s) - 6 month follow-up suggested RECOMMENDATION: 6 Month F/U Results were provided to the patient at time of visit by the technologist. This patient's information was entered into a reminder system with a target due date for their next mammogram. Electronically signed by: Juanita Keita DO 01/01/2025 12:04 PM JENNY
== END 2025-01-01 09:04 | disposition home or self-care (01) ==
LOC: HO.MAMMO 09:03
PROVIDERS: Visit Provider Advanced Practice Midwife
DX: N64.89 Other specified disorders of breast (principal)
CPT/HCPCS: 76642; 77061; 77065

== ENCOUNTER → 2025-01-01 09:15 | Outpatient (BNV) | payer OTHER, SELFPAY | PROVIDERS: Visit Provider Internal Medicine | DX: R92.8 Other abnormal and inconclusive findings on diagnostic imaging of breast (principal) | CPT/HCPCS: 76642; 77061; 77065 ==

== ENCOUNTER 2025-01-01 10:20 | Outpatient (REF) | payer OTHER, SELFPAY ==
[2025-01-02 07:44] LABS: Follicle Stimulating Hormone 55.8 mIU/mL
== END 2025-01-01 10:21 | disposition home or self-care (01) ==
LOC: HO.LAB 10:20
PROVIDERS: Visit Provider Advanced Practice Midwife
DX: N91.2 Amenorrhea, unspecified (principal)
CPT/HCPCS: 36415; 83001

== ENCOUNTER 2025-01-09 07:59 | Outpatient (AMB) | payer OTHER, SELFPAY ==
--- NOTE | 2025-01-09 08:00 | MHC.OFFVIS ---
Intake Visit Reasons: TV Mammo/breast ultra sound follow up ok per mohsen Intake Note: cell #[phone] Supervisor Customer Complaint Service: Supervisor Customer Complaint Service Present Allergies No Known Allergies Allergy (Verified 10/17/24 09:59) Is last menstrual period known: Yes HPI Comments Details: Tele Health Visit Total time I personally spent on visit and management today: 40 minutes. Time spent included review of pertinent office notes in the electronic health record; review of laboratory and imaging results; review of personal family medical history; discussing diagnosis and plan of care with the patient; documenting the encounter in the EMR. Patient presents to discuss: Follow up test results for FSH. Discontinued long-term Depo-Provera use and admitted to having severe depression and suicidal thoughts after 5 week point of stopping she experienced severe uterine cramping where she could not get out of bed, follow up by mental health changes. She reports the cramping has resolved and she no longer feels suicidal. She does feel edgy and short-tempered while at work, her coworkers are aware of her changes in are somewhat supportive. Her friends and family are aware and supportive. She denies having a history of depression in the past. She reports she is eating and sleeping well. Has not experienced any vaginal bleeding. 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 [employer] Sexual orientation: Straight/Heterosexual Gender identity: Female Female Reproductive History Menstrual Age of Menarche: 12 Review of Systems Const All systems reviewed & are unremarkable except as noted in HPI and below Endo Reports no additional complaints Physical Exam Const General: cooperative, healthy appearing and no acute distress Psych Appearance: well kempt Attitude: cooperative Thought process: Normal thought process present Telehealth Telehealth Telehealth Platform: [employer] Mobile Location of provider rendering services: practice address Location of patient: other Patient Identification confirmed using: Name, : Yes Telehealth method: video Patient verbally consented to treatment: Yes Patient verbally consented to billing insurance company: Yes Patient informed of any privacy concerns related to visit: Yes Results Reviewed Results Reviewed: [facility] [address] [place], [place] [address] Ultrasound Report Signed Patient: Gabi Fernández MR#: [id number] : 1975 Acct:[id number] Age/Sex: 49 / F ADM Date: 01/01/25 Loc: HO.MAMMO Attending Dr: Ivon Benedict CNM Ordering Physician: Ivon Benedict CNM Date of Service: 01/01/25 Procedure(s): US breast RT limited mamm only Accession Number(s): [id number] cc: Ivon Benedict CNM~ EXAMINATION: MM DIAGNOSTIC DIGITAL BREAST TOMOSYNTHESIS, RIGHT Limited right breast ultrasound. CLINICAL INFORMATION: Call back from screening for asymmetry in the right breast. COMPARISON: Mammography: Available prior imaging. TECHNIQUE: Digital breast tomosynthesis is performed in both the craniocaudal and mediolateral oblique views along with computer-aided detection (CAD). Synthesized 2D images are generated from the tomosynthesis. Limited right breast ultrasound. FINDINGS: The breasts are heterogeneously dense, which may obscure small masses (ACR BI-RADS breast composition Category c). Previously seen asymmetries in the superior breast and retroareolar region of the right breast do not persist on additional imaging projections and likely represented overlapping breast tissue. There are no significant masses, abnormal calcifications, or other abnormalities. Targeted color Doppler ultrasound scanning from 9 2 2:00 demonstrates an incidental hypoechoic oval circumstance solid mass versus complicated cyst at 12:00 6 cm from the nipple measuring 4 x 2 x 4 mm. No other sonographic abnormality is seen otherwise there is normal fibronodular breast tissue. US/US breast RT limited mamm only IMPRESSION: Incidental solid mass versus complicated cyst at 12:00 6 cm from nipple. Recommend 6 month follow-up ultrasound for further evaluation of stability. ASSESSMENT: BI-RADS BI-RADS 3 - Probably benign finding(s) - 6 month follow-up suggested RECOMMENDATION: 6 Month F/U Results were provided to the patient at time of visit by the technologist. This patient's information was entered into a reminder system with a target due date for their next mammogram. Electronically signed by: Juanita Keita DO 01/01/2025 12:04 PM EST RP Dictated By: Juanita Keita DO Signed By: <Electronically signed by Juanita Keita DO in OV> 01/01/25 1204 DD/ 0945 TD/TT: Systems Design Engineer: Assessment & Plan Assessment & Plan (1) Amenorrhea: Code(s): N91.2 - Amenorrhea, unspecified Category: Medical (2) Encounter to discuss test results: Code(s): Z71.2 - Person consulting for explanation of examination or test findings Plan Discussed: FSH results 01/01/2025- 55.8. Reviewed breast imaging. Patient not interested in pursuing a consult for breast care feels comfortable with maintaining the plan radiology recommended-a six-month follow up. Menopause verses perimenopause. Menopause is definitive of 1 year of no menses or 12 months in succession. Report any abnormal uterine bleeding in example prolonged episodes, or short intervals less than 24 days. Counseled regarding self-care - healthy well-balanced diet, regular daily exercise, self-help measures. Considered referral if desires to behavioral health. Advised to research her insurance planning to look at [facility] for therapist in her area. crisis number provided. Encouraged her to maintain support connections with her family and friends. And also to be aware of her boundaries and limitations with coworkers and to take a time-out when she needs it. Plan follow up in the next 1-2 weeks. The patient expressed understanding and agreement with the plan of care. All of her questions and concerns were addressed to the best of my ability. This note is constructed using voice recognition software. While every effort has been made to ensure accuracy, experimental machining lab manager errors may have been included. Coding Level of Care Code Tele Est Pt Level 3 (64812) Diagnoses Amenorrhea N91.2 Encounter to discuss test results Z71.2
== END 2025-01-09 09:38 | disposition home or self-care (01) ==
PROVIDERS: Visit Provider Advanced Practice Midwife
DX: N91.2 Amenorrhea, unspecified (principal); Z71.2 Person consulting for explanation of examination or test findings
CPT/HCPCS: 99213

== ENCOUNTER 2025-07-10 10:49 | Outpatient (REF) | payer OTHER, SELFPAY ==
--- NOTE | ~2025-07-10 | US_ITS ---
EXAMINATION: US DIAGNOSTIC ULTRASOUND BREAST, RIGHT CLINICAL INFORMATION: 6 month follow-up for right breast. Complicated cyst versus solid mass. COMPARISON: Comparison is made with relevant prior imaging. TECHNIQUE: Ultrasound of the breast is performed with real-time murray scale imaging and color Doppler. FINDINGS: Targeted color Doppler ultrasound in the right breast at 12:00 6 cm from nipple again demonstrates a hypoechoic ill-defined solid mass versus complicated cyst measuring 4 x 3 x 2 mm. This is not significantly changed from prior. Results are discussed with the patient at time of visit. US/US breast RT limited mamm only IMPRESSION: Solid mass versus complicated cyst at 12:00 6 cm from the nipple in the right breast not significantly changed from prior. Recommend 6 month follow-up for further evaluation of stability. ASSESSMENT: BI-RADS 3: Probably Benign RECOMMENDATION: Diagnostic ultrasound in 6 months. This patient's information was entered into a reminder system with a target due date for their next mammogram. Electronically signed by: Juanita Keita DO 07/10/2025 12:13 PM EDT
--- OUTSIDE RECORDS SUMMARY | 2025-07-10 11:41 | XMS_ITS ---
Author Name [facility] Organization Unknown Care Team Organization Name Specialty Phone Email Start Date End Da te [facility] Rosemary Patterson Primary Care 09/21/2022 07/02/2024
--- OUTSIDE RECORDS SUMMARY | 2025-07-10 11:41 | XMS_ITS | Clinical Summary ---
Author Organization [facility] Address [address] [facility] [address] [place] [id number] Phone Care Team Providers Care Slunk Skin Curer Name Role Phone Rosemary Patterson Primary Care Provider + Allergies No known active allergies Medications medroxyPROGEST ERone (DEPO-PROVERA) 150 mg/mL injection INJECT 150MG INTRAMUSCULARLY EVERY 12 WEEKS 11/21/19 24 Active Active Problems Problem Noted Date Diagnosed Date Basal cell carcinoma (BCC) of right medial cheek 01/11/2024 Tobacco abuse 01/11/2024 Basal cell carcinoma (BCC) of skin of left upper lip 01/11/2024 Family History Medical History Relation Comments Skin cancer Father Relation Status Comments Father Alive Mother Alive Social History Tobacco Use Types Packs/Day Years Used Date Smoking Tobacco: Every Day Cigarettes Smokeless Tobacco: Never Tobacco Cessation:Ready to Q uit: Not Asked; Counseling Given: Not Answered Alcohol Use Standard Drinks/Week Comments Yes 0 (1 standard drink = 0.6 oz pur e alcohol) 5-7 weekly Education Answer Date Recorded Are you interested in more education? Not on casimiro e 01/04/2024 Are you concerned about learning? Not on file 01/04/2024 No 01/04/2024 No 01/04/2024 Digital Access Answer Date Recorded No 01/04/2024 No 01/04/2024 Reliable internet access at home? Not on file 01/04/2024 Device with a working camera? Not on file Comments Unknown Sex and Gender Information Value Date Recorded Sex Assigned at Not on file Legal Sex Female 10:09 AM EST Gender Identity Not on file Sexual Orientation Not on file Last Filed Vital Signs Vital Sign Reading Time Taken Comments Blood Pressure 149/88 01/11/2024 9:55 AM EST Pulse 95 01/11/2024 9:55 AM EST Temperature - - Respiratory Rate - - Oxygen Saturation - - Inhaled Oxygen Concentration - - Weight 81.5 kg (179 lb 9.6 oz) 01/11/2024 9:55 A M EST Height 160 cm (5' 3 ) 01/11/2024 9:55 AM EST Body Mass Index 31.81 01/11/2024 9:55 AM EST Plan of Treatment Health Maintenance Due Date Last Done Comments Adult Td,Tdap Booster 1975 LIPID PANEL 1975 DEPRESSION SCREENING 1987 SMOKING Hx and SMOKELESS TOB ACCO SCREENING 1988 HEPATITIS C SCREENING 1993 HIV ONE-TIME SCREENING (18-6 5 YEARS) 1993 PNEUMOCOCCAL VACCINES (50+ y ears) (1 of 2 - PCV) 1994 PAP SMEAR 1996 SCREENING FOR DIABETES 2010 MAMMOGRAM 2015 COLOGUARD 2020 COLONOSCOPY 2020 COLORECTAL CANCER SCREENING 2020 FIT TEST 2020 FOBT 2020 SIGMOIDOSCOPY 2020 VIRTUAL COLONOSCOPY 2020 COVID-19 VACCINE ( - 2023-2 5 season) 2024 ZOSTER VACCINES (1 of 2) 2025 HEPATITIS A VACCINES Aged Out No long er eligible based on patient's age to complete this topic HIB VACCINES Aged Out No longer eligi ble based on patient's age to complete this topic MENINGOCOCCAL VACCINES (ACWY) Aged Out No longer eligible based on patient's age to complete this topic MENINGOCOCCAL VACCINES (B) Aged Out N o longer eligible based on patient's age to complete this topic Medical Devices Not on file [place] [address] [facility] [place] [address] [place] [address] [employer] [place] [address] [address] [address] [facility] [place] [address] [employer] Member Subscriber Plan / Payer (Ef fective 2023-Present) Name:Gabi Fernández Relation to Subscriber:Self Name:Gabi Fernández Payer ID:[id number] Group ID:[id number] Type:Medicaid Address: [place] [id number] [place] [address] [place] [address] [employer] Care Teams Slunk Skin Curer Relationship Specialty Start Date End Date Rosemary Patterson PA [address] [address] PCP - General 01/10/24 Additional Source Comments The information contained in this document represents components of the legal health record. It is not the complete legal health record.[facility]
== END 2025-07-10 10:50 | disposition home or self-care (01) ==
LOC: HO.MAMMO 10:49
PROVIDERS: Visit Provider Advanced Practice Midwife
DX: N60.01 Solitary cyst of right breast (principal)
CPT/HCPCS: 76642

== ENCOUNTER → 2025-07-10 11:00 | Outpatient (BNV) | payer OTHER, SELFPAY | PROVIDERS: Visit Provider Internal Medicine | DX: N60.01 Solitary cyst of right breast (principal) | CPT/HCPCS: 76642 ==

== ENCOUNTER 2025-10-14 09:37 | Outpatient (AMB) | payer OTHER, SELFPAY ==
[2025-10-14 10:08] VITALS: BP 112/94; PULSE 113; TEMP 37.1; O2SAT 100; BMI 30.3
--- NOTE | 2025-10-14 10:08 | AM.OFFWIN_ITS ---
Intake Vital Signs 10/14/25 10:08 Height 5 ft 3 in Weight 171 lb BMI 30.3 BP 112/94 H Blood Pressure Location Lt brachial Position Sitting Pulse 113 H Pulse Source Pulse Oximeter Temp 98.7 F Temp Source Oral Pulse Oximetry (%) 100 Oxygen Delivery Method Room Air Intake Visit Reasons: EP Pelvic pain Intake Note: pt presents with low pelvic pain and cramping pressure at the end of voiding x3 days Patient Tobacco Use Status: Current everyday Tobacco user Allergies No Known Allergies Allergy (Verified 10/14/25 10:17) Medication List - Last Reconciled 10/14/25 by Madie Renee NP metronidazole 0.75%(37.5mg/5gram) (Vandazole) 1 appful vaginal DAILY 5 days Do you need a note to return to daycare/school/sports/work: No HPI HPI Comments History of Present Illness Details 50 y/o female presents to the [facility] with 3 days of lower pelvic pain described as cramping pressure, especially worsening at the end of voiding. Reports bloating and mild constipation. Notes vaginal discharge but denies vaginal pain. She is not currently sexually active (last sexual activity May). Post-menopausal. Has a history of cervical cancer and previously underwent a LEEP procedure. Denies nausea, vomiting, fever, or chills. 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 [employer] Sexual orientation: Straight/Heterosexual Gender identity: Female Female Reproductive History Menstrual Age of Menarche: 12 Review of Systems Const All systems reviewed & are unremarkable except as noted in HPI and below Physical Exam Vital Signs: Last Vital Signs Temp 98.7 F 10/14/25 10:08 Pulse 113 H 10/14/25 10:08 BP 112/94 H 10/14/25 10:08 Pulse Ox 100 10/14/25 10:08 Oxygen Delivery Method Room Air 10/14/25 10:08 BMI result Body Mass Index 30.3 Const Orientation/consciousness: patient oriented x3 GI Inspection: Yes Abdominal panniculus present Palpation (GI): Soft to palpation, not firm, Tenderness to palpation present (GI) suprapubicly, no guarding, not rigid and No hepatosplenomegaly present Auscultation: Hyperactive bowel sounds present General: Yes bladder normal to palpation and Yes no CVA tenderness Speculum Exam - Vagina: abnormal vaginal discharge white, malodorous and murray and tenderness bilaterally Bimanual exam- vagina & uterus: bladder normal to palpation and no cervical motion tenderness Back/Spine/Pelvis Back: no CVA tenderness Neuro General: patient oriented x3, gait normal and moves all extremities Psych Speech and movement: Normal speech and movement present Results AMB Urinalysis, Automated UA Leukoctes 0 Hayley/uL Last Edit by Monica Mclean CMA on 10/14/25 10:26 UA Nitrite Negative Last Edit by Monica Mclean CMA on 10/14/25 10:26 UA Urobilinogen 0.2 mg/dL Last Edit by Monica Mlcean CMA on 10/14/25 10:2 6 UA Protein 15 mg/dL Last Edit by Monica Mclean CMA on 10/14/25 10:26 UA pH 6.0 Last Edit by Monica Mclean CMA on 10/14/25 10:26 UA Blood 10 Boyd/uL Last Edit by Monica Mclean CMA on 10/14/25 10:26 UA Specific [place] 1.030 Last Edit by Monica Mclean CMA on 10/14/25 10: 26 UA Ketone Negative Last Edit by Monica Mclean CMA on 10/14/25 10:26 UA Bilirubin 1 mg/dL Last Edit by Monica Mclean CMA on 10/14/25 10:26 1+ Monica Mclean 10/14/25 10:26 UA Glucose 0 mg/dL Last Edit by Monica Mclean CMA on 10/14/25 10:26 Results Reviewed Results Reviewed: Laboratory Last Values Urine pH (Auto) 6.0 10/14/25 10:23 Specific [place] (Auto) 1.030 10/14/25 10:23 Urine Protein (Auto) 15 mg/dL H 10/14/25 10:23 Glucose (UA)(Auto) 0 mg/dL 10/14/25 10:23 Urine Ketones (Auto) Negative 10/14/25 10:23 Urine Blood (Auto) 10 Boyd/uL H 10/14/25 10:23 Urine Nitrite (Auto) Negative 10/14/25 10:23 Urine Bilirubin (Auto) 1 mg/dL H* 10/14/25 10:23 Urine Urobilinogen (Auto) 0.2 mg/dL 10/14/25 10:23 Leukocyte Esterase (Auto) 0 Hayley/uL 10/14/25 10:23 Assessment & Plan Assessment & Plan (1) Vaginitis and vulvovaginitis: Code(s): N76.0 - Acute vaginitis Plan: In office Urinalysis - Unremarkable. Vaginal discharge ? Ordered Vaginal Panel to r/o BV, yeast infection; less likely STI given no sexual activity since May. The [place] discharge consistent with BV. Ordered Metronidazole Gel for 5 days. Ordered STI Panel Would Consider Pelvic ultrasound if symptoms persist due to prior cervical CA history - deferred to PCP. Constipation/bloating ? may be contributing to pelvic discomfort. Constipation management: Miralax daily PRN, hydration, fiber. Orders: Orders CT NG by PCR Vag/Cerv Today N76.0 - Acute vaginitis AMB Urinalysis Automated Today Z13.9 - Encounter for screening, unspecified Bacterial Vaginosis Panel Today N76.0 - Acute vaginitis Medications: New metronidazole 0.75%(37.5mg/5gram) (Vandazole) 1 appful vaginal DAILY 70 grams 0RF 5 days N76.0 - Acute vaginitis Coding Level of Care Code Est Pt Level 4 (77583) Diagnoses Vaginitis and vulvovaginitis N76.0 Time Spent (min) 20
--- OUTSIDE RECORDS SUMMARY | 2025-10-14 11:26 | XMS_ITS | Clinical Summary ---
Author Organization [facility] Address [address] [facility] [address] [place] [phone] Phone Care Team Providers Care Physician Advisor Name Role Phone Rosemary Patterson Primary Care [...] FOBT 2020 SIGMOIDOSCOPY 2020 VIRTUAL COLONOSCOPY 2020 ZOSTER VACCINES (1 of 2) 2025 INFLUENZA VACCINE (#1) 2025 COVID-19 VACCINE (1 - 2024-2 6 season) 2025 RSV VACCINE (1 - 1-dose 75+ series) 2050 HEPATITIS A VACCINES Aged Out No long [...] topic Medical Devices Not on file Insurance [facility] [place] [address] [place] [address] [address] [place] [address] [place] [address] [place] [address] [place] [address] [place] [address] [facility] [employer] [facility] Care Teams Physician Advisor Relationship Specialty Start Date End Date Rosemary Patterson PA [address] [place] [id number] PCP - General 01/10/24 Additional Source Comments The information contained in this document represents components of the legal health record. It is not the complete legal health record.[facility]
== END 2025-10-14 11:14 | disposition home or self-care (01) ==
PROVIDERS: Visit Provider Nurse Practitioner Family
DX: N76.0 Acute vaginitis (principal); Z13.9 Encounter for screening, unspecified

== ENCOUNTER 2025-10-14 09:37 | Outpatient (REF) | payer OTHER, SELFPAY ==
[2025-10-14 15:08] LABS: Bacterial Vaginosis PCR NEGATIVE (Negative); Candida Group PCR NOT DETECTED (Not Detect); Candida glab krusei PCR NOT DETECTED (Not Detect); Trichomonas vaginalis PCR NOT DETECTED (Not Detect)
[2025-10-14 15:37] LABS: CT PCR NOT DETECTED (Not Detect.); NG PCR NOT DETECTED (Not Detect.)
== END 2025-10-14 09:38 | disposition home or self-care (01) ==
LOC: HO.LAB 09:37
PROVIDERS: Visit Provider Nurse Practitioner Family
DX: N76.0 Acute vaginitis (principal); Z20.2 Contact with and (suspected) exposure to infections with a predominantly sexual mode of transmission
CPT/HCPCS: 81003; 81515; 87491; 87591; 99212

== ENCOUNTER 2025-10-23 10:00 | Outpatient (AMB) | payer OTHER, SELFPAY ==
--- NOTE | 2025-10-23 10:06 | A.OFFVIS_ITS ---
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 Went to urgent care last week and checked out for BV. 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 Stopped Depo over a year ago, no bleeding since. Currently not sexually active. Denies any vaginal dryness or irritation. STI tests 10/14/25 completed in urgent care-all neg. Attempting to eat a healthy diet with calcium and vitamin D and stays active with exercise. Last pap smear; 2023, negative. Last mammogram; 2024. Colonoscopy is not UTD. 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 [employer] Sexual orientation: Straight/Heterosexual Gender identity: Female Female Reproductive History Menstrual Age of Menarche: 12 Date of last menstrual period: 10/23/09 control method: abstinence Total pregnancies: 4 Number of Living Children: 1 Ab induced: 3 Date of last pap smear: 10/18/25 History of abnormal pap smear: Yes Date of Mammogram: 01/01/25 History of abnormal mammogram: Yes Review of Systems Const All systems reviewed & are unremarkable except as noted in HPI and below Reports as per HPI Eyes Reports no additional complaints ENT Reports no additional complaints Card Reports no additional complaints Resp Reports no additional complaints GI Reports as per HPI and Reports no additional complaints Reports as per HPI Musc Reports no additional complaints Skin/Breast Reports as per HPI Neuro Reports no additional complaints Psych Reports no additional complaints Endo Reports no additional complaints Chuck/Lymph Reports no additional complaints Aller/Immun Reports no additional complaints Physical Exam Vital Signs: Last Vital Signs BP 108/74 10/23/25 10:08 BMI result Body Mass Index 30.3 Const General: cooperative, healthy appearing, no acute distress, well developed and alert Orientation/consciousness: patient oriented x3 HEENT Head: Yes normal to inspection Eyes General: appearance normal, both eyes and all related structures Neck Neck: Yes normal visual inspection Thyroid: Thyroid normal Chest Other: Bilaterally inverted nipples (since development) Chest palpation & inspection: normal inspection of the chest and other (no puckering, dimpling, peau de orange, retraction, discharge, masses) Breast/axilla inspection: normal inspection of the breasts Breast/axilla palpation: normal palpation of the breasts Resp Effort & Inspection: normal respiratory effort GI Inspection: Yes normal to inspection Palpation (GI): Soft to palpation Rectal Exam - Female: deferred General: Yes bladder normal to palpation External Female Exam: normal external appearance and normal appearance of the urethra Speculum Exam - Vagina: normal appearance of the vagina, normal palpation and normal vaginal discharge Speculum Exam - Cervix: normal appearance of the cervix and normal palpation Bimanual exam- vagina & uterus: normal bimanual exam, normal palpation, uterine size normal, bladder normal to palpation, normal palpation and non-tender Bimanual Exam- Adnexa, other: no masses Skin General skin exam: no rashes or lesions noted Rashes: no rashes Neuro General: patient oriented x3 Cognition (Neuro): normal cognition Extrem General: Yes normal to inspection Psych Attitude: cooperative Thought process: Normal thought process present Assessment & Plan Assessment & Plan (1) Encounter for gynecological examination: Code(s): Z01.419 - Encounter for gynecological examination (general) (routine) without abnormal findings Category: Medical Plan Discussed: Current recommendations for pap smears per ASCCP guidelines. Breast awareness, periodic self breast exams and yearly mammogram. Maintain a healthy lifestyle, well balanced diet including Calcium 1,200 mg and Vitamin D 600 IU daily, and routine exercise. Use of condoms for STI prevention if indicated. Contact the office with any postmenopausal bleeding. Follow up PCP regarding colonoscopy. Patient verbalizes understanding and agrees to the plan of care. She was given opportunity to ask questions and all questions were answered to the best of my ability. 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 This note is constructed using voice recognition software. While every effort has been made to ensure accuracy, offset lithographic press operator errors may have been included. Coding Level of Care Code Est Pt Prev Care 40-64y(36635) Diagnoses Encounter for gynecological examination Z01.419
[2025-10-23 10:08] VITALS: BP 108/74; BMI 30.3
== END 2025-10-23 10:51 | disposition home or self-care (01) ==
LOC: HO.HWS 10:01
PROVIDERS: Visit Provider Advanced Practice Midwife
DX: Z01.419 Encounter for gynecological examination (general) (routine) without abnormal findings (principal)
CPT/HCPCS: 99396; 99459

== ENCOUNTER → 2025-10-23 10:00 | Outpatient (BNVA) | payer OTHER, SELFPAY | PROVIDERS: Visit Provider Advanced Practice Midwife | DX: Z01.419 Encounter for gynecological examination (general) (routine) without abnormal findings (principal); Z71.3 Dietary counseling and surveillance; Z68.30 Body mass index [BMI] 30.0-30.9, adult | CPT/HCPCS: 99396 ==